=== PATIENT | female | born 1985 | race Caucasian/White ===

== ENCOUNTER 2020-06-18 05:00 | Inpatient (IN) | payer OTHER ==
[2020-06-18] MEDS ORDERED: Methylergonovine 0.2 MG/1 ML Amp IM PRN (05:29)
[2020-06-18] MEDS ORDERED: Tranexamic Acid 1,000 MG in Sodium Chloride 0.9% 100 ML IV PRN (05:29)
[2020-06-18] MEDS ORDERED: Misoprostol 200 MCG Tab PO PRN (05:29)
[2020-06-18] MEDS ORDERED: Water For Irrigation,Sterile 1,000 ML Container IRR PRN (05:29)
[2020-06-18] MEDS ORDERED: Sodium Chloride 0.9% 10 ML Syringe FLUSH PRN (05:29)
[2020-06-18] MEDS ORDERED: Carboprost Tromethamine 250 MCG/1 ML Amp IM PRN (05:29)
[2020-06-18] MEDS ORDERED: Ampicillin 2 GM in Sodium Chloride 0.9% 100 ML IV ONE (05:29)
[2020-06-18] MEDS ORDERED: Sodium Chloride 0.9% 10 ML SDV IV PRN (05:29)
[2020-06-18] MEDS ORDERED: Nalbuphine 10 MG/1 ML Vial IVPUSH PRN (05:29)
[2020-06-18] MEDS ORDERED: Lidocaine 1% 50 ML MDV INJECT PRN (05:29)
[2020-06-18] MEDS ORDERED: Ondansetron 4 MG/2 ML SDV IVPUSH PRN (05:29)
[2020-06-18] MEDS ORDERED: Sodium Chloride 0.9% 2.5 ML Syringe FLUSH PRN (05:29)
[2020-06-18] MEDS ORDERED: Butorphanol 1 MG/ML SDV IVPUSH PRN (05:29)
[2020-06-18] MEDS ORDERED: Oxytocin/0.9 % Sodium Chloride 30 UNIT/500 ML BAG IV SCH ×2 (05:30→06:30)
[2020-06-18] MEDS: Lactated Ringers 1,000 ML IV SCH ×4 (05:35→12:54)
[2020-06-18] MEDS ORDERED: Terbutaline 1 MG/ML SDV SUBCUT PRN (06:19)
[2020-06-18] MEDS ORDERED: Ampicillin 1 GM in Sodium Chloride 0.9% 50 ML IV SCH (06:45)
[2020-06-18] MEDS: Ampicillin 1 GM in Sodium Chloride 0.9% 50 ML IV SCH ×2 (10:10→14:25)
[2020-06-18] MEDS ORDERED: Ropivacaine HCl/PF 100 ML ONE (11:19)
[2020-06-18] MEDS ORDERED: fentaNYL 100 MCG/2 ML SDV ONE (11:19)
[2020-06-18] MEDS ORDERED: Lidocaine 1% 50 ML MDV ONE (11:50)
--- NOTE | 2020-06-18 12:25 | PCM.PREANE ---
Preanesthetic Assessment - Procedure Proposed Procedure: Continuous Labor Epidural - Anesthesia/Transfusion/Family Hx Anesthesia History: Prior Anesthesia Without Reaction Transfusion History: No Prior Transfusion(s) - Review of Systems General: No Symptoms Pulmonary: No Symptoms Cardiovascular: No Symptoms Gastrointestinal: No Symptoms Neurological: No Symptoms Other: Reports: None - Physical Assessment Height: 5 ft 4 in Weight: 98.883 kg ASA Class: 2 Mental Status: Alert & Oriented x3 Airway Class: Mallampati = 2 Dentition: Reports: Normal Dentition Thyro-Mental Finger Breadths: 3 Mouth Opening Finger Breadths: 3 ROM/Head Extension: Full Lungs: Clear to Auscultation, Normal Respiratory Effort Cardiovascular: Regular Rate, Regular Rhythm - Lab Values: Laboratory Last Values WBC 10.94 K/uL (4.0-11.0) 06/18/20 05:20 RBC 4.41 M/uL (4.30-5.90) 06/18/20 05:20 Hgb 12.7 g/dL (12.0-16.0) 06/18/20 05:20 Hct 39.5 % (36.0-46.0) 06/18/20 05:20 MCV 89.6 fL (80.0-98.0) 06/18/20 05:20 MCH 28.8 pg (27.0-32.0) 06/18/20 05:20 MCHC 32.2 g/dL (31.0-37.0) 06/18/20 05:20 RDW Std Deviation 43.3 fl (28.0-62.0) 06/18/20 05:20 RDW Coeff of Home 13 % (11.0-15.0) 06/18/20 05:20 Plt Count 289 K/uL (150-400) 06/18/20 05:20 MPV 10.10 fL (7.40-12.00) 06/18/20 05:20 Nucleated RBC % 0.0 /100WBC 06/18/20 05:20 Nucleated RBCs # 0 K/uL 06/18/20 05:20 Blood Type O POSITIVE 06/18/20 05:20 Antibody Screen NEGATIVE 06/18/20 05:20 - Allergies Allergies/Adverse Reactions: Allergies Allergy/AdvReac Type Severity Reaction Status Date / Time influenza virus vaccine ts Allergy Swelling Verified 06/18/20 05:33 [id number] (36 mos,up) [From Fluarix] - Anesthesia Plan Free Text/Narrative:: Continuous Labor Epidural Pre-Op Medication Ordered: None - Acknowledgements Anesthesia Type Planned: Epidural Pt an Appropriate Candidate for the Planned Anesthesia: Yes Alternatives and Risks of Anesthesia Discussed w Pt/Guardian: Yes Pt/Guardian Understands and Agrees with Anesthesia Plan: Yes PreAnesthesia Questionnaire HEENT History: Reports: None Cardiovascular History: Reports: None Respiratory History: Reports: None Gastrointestinal History: Reports: None Genitourinary History: Reports: None [employer]IOLOGICAL HEALTH SPECIALIST History: Reports: : 3 Para: 0 LMP (Approximate): Musculoskeletal History: Reports: None Neurological History: Reports: None Psychiatric History: Reports: None Endocrine/Metabolic History: Reports: None Hematologic History: Reports: None Immunologic History: Reports: None Oncologic (Cancer) History: Reports: None Dermatologic History: Reports: None - Infectious Disease History Infectious Disease History: Reports: None - Past Surgical History HEENT Surgical History: Reports: Tonsillectomy - SUBSTANCE USE Tobacco Use Status *Q: Never Tobacco User Second Hand Smoke Exposure: No Recreational Drug Use History: No - CURRENT (IN HOUSE) MEDS Current Meds: Current Medications Butorphanol Tartrate (Stadol) 1 mg IVPUSH Q1H PRN PRN Reason: Pain Last Admin: 06/18/20 12:20 Dose: 1 mg Documented by: Carboprost Tromethamine (Hemabate Ds) 250 mcg IM ASDIRECTED PRN PRN Reason: Post Hemorrhage Oxytocin/Sodium Chloride (Oxytocin 30 Unit/500 Ml-Ns) 30 unit in 500 mls @ 500 mls/hr IV TITRATE [facility] Tranexamic Acid 1,000 mg/ (Sodium Chloride) 110 mls @ 660 mls/hr IV ONETIME PRN PRN Reason: Bleeding Lactated Ringer's (Ringers, Lactated) 1,000 mls @ 150 mls/hr IV ASDIRECTED [place] Last Admin: 06/18/20 05:35 Dose: 150 mls/hr Documented by: Oxytocin/Sodium Chloride (Oxytocin 30 Unit/500 Ml-Ns) 30 unit in 500 mls @ 2 mls/hr IV TITRATE [facility]; Protocol Last Titration: 06/18/20 11:20 Dose: 2 munits/min, 2 mls/hr Documented by: Ampicillin Sodium 1 gm/ Sodium (Chloride) 50 mls @ 100 mls/hr IV Q4H [facility] Last Admin: 06/18/20 10:10 Dose: 100 mls/hr Documented by: Lidocaine HCl (Xylocaine 1%) 50 ml INJECT ONETIME PRN PRN Reason: Laceration repair Methylergonovine Maleate (Methergine) 0.2 mg IM ASDIRECTED PRN PRN Reason: Post Hemorrhage Misoprostol (Cytotec) 200 mcg PO ONETIME PRN PRN Reason: Post Hemorrhage Nalbuphine HCl (Nubain) 10 mg IVPUSH Q1H PRN PRN Reason: Pain (severe 7-10) Ondansetron HCl (Zofran) 4 mg IVPUSH Q4H PRN PRN Reason: Nausea/Vomiting Sodium Chloride (Saline Flush) 10 ml FLUSH ASDIRECTED PRN PRN Reason: Keep Vein Open Sodium Chloride (Saline Flush) 2.5 ml FLUSH ASDIRECTED PRN PRN Reason: Keep Vein Open Sodium Chloride (Normal Saline) 10 ml IV ASDIRECTED PRN PRN Reason: IV Use Sterile Water (Sterile Water For Irrigation) 1,000 ml IRR ASDIRECTED PRN PRN Reason: delivery Terbutaline Sulfate (Brethine) 0.25 mg SUBCUT ASDIRECTED PRN PRN Reason: Tacysystole Discontinued Medications Fentanyl (Sublimaze) Confirm Administered Dose 200 mcg .ROUTE .STK-MED ONE Stop: 06/18/20 11:20 Ampicillin Sodium 2 gm/ Sodium (Chloride) 100 mls @ 200 mls/hr IV ONETIME ONE Stop: 06/18/20 05:58 Last Admin: 06/18/20 05:49 Dose: 200 mls/hr Documented by: Ropivacaine (Naropin 0.2%) Confirm Administered Dose 100 mls @ as directed .ROUTE .STK-MED ONE Stop: 06/18/20 11:20 Lidocaine HCl (Xylocaine 1%) Confirm Administered Dose 50 ml .ROUTE .STK-MED ONE Stop: 06/18/20 11:51
[2020-06-18] MEDS ORDERED: Docusate Sodium 100 MG Cap PO PRN (18:36)
[2020-06-18] MEDS ORDERED: Lanolin 100% Cream 7 GM Tube TOP PRN (18:36)
[2020-06-18] MEDS ORDERED: Acetaminophen 500 MG Tab PO PRN ×2 (18:36)
[2020-06-18] MEDS ORDERED: Witch Hazel Medicated Pads 40/Jar TOP PRN (18:36)
[2020-06-18] MEDS ORDERED: Bisacodyl 10 MG Supp RECTAL PRN (18:36)
[2020-06-18] MEDS ORDERED: Ibuprofen 400 MG Tab PO PRN (18:36)
[2020-06-18] MEDS ORDERED: Benzocaine/Menthol 20%-0.5% Spray 78 GM Cannister TOP PRN (18:36)
[2020-06-18] MEDS ORDERED: oxyCODONE 5 MG Tab PO PRN (18:36)
--- NOTE | 2020-06-18 18:43 | PCM.OPNOTE ---
- General Post-Op/Procedure Note Date of Surgery/Procedure: 06/18/20 Operative Procedure(s): /1st MLL repaired Findings: Viable male APGARs 8, 9 weight 3130gm Spontaneous delivery intact placenta and 3V cord Pre Op Diagnosis: 40 week IUP. AMA. Elective IOL Post-Op Diagnosis: Same Anesthesia Technique: Epidural Primary Surgeon: Toña Ely EBL in mLs: 300 Complications: none known Condition: Good Free Text/Narrative:: Dictation [id number]
--- NOTE | 2020-06-18 20:44 | OR ---
SURGEON: Toña Ely M.D. DATE OF PROCEDURE: 06/18/2020 PREOPERATIVE DIAGNOSES: 1. 40-week intrauterine . 2. Advanced maternal age. 3. Elective induction of labor. POSTOPERATIVE DIAGNOSES: 1. 40-week intrauterine . 2. Advanced maternal age. 3. Elective induction of labor. PROCEDURE: Spontaneous vaginal delivery, first-degree midline laceration repaired. PRIMARY SURGEON: Toña Ely M.D. ANESTHESIA: Epidural. ESTIMATED BLOOD LOSS: 300 mL. COMPLICATIONS: None. FINDINGS: Viable male. scores 8 at one minute and 9 at five minutes. Weight of 3130 g. Spontaneous delivery, intact placenta, 3-vessel cord. DISPOSITION: to nursery. Mom in LDRP. PROCEDURE DETAILS: Alma is a 35-year-old, G1, P0, at 40 weeks' gestational age, who was admitted on the morning of 06/18/2020 for scheduled induction of labor due to gestation and advanced maternal age. Upon admission, the patient was found to be 2 to 3 cm dilated, 70% effaced, -2 station. heart tones were category 1. She is group B beta strep positive, so ampicillin prophylaxis was initiated after IV had been started and labs drawn. The patient is COVID negative. The patient responded nicely shortly before 10 a.m. after receiving her second dose of antibiotic. She was found to be 3 cm, 70% effaced, -2 station. Amniotomy was performed and clear fluid was returned. The patient became increasingly uncomfortable and underwent regional anesthesia. This was fairly difficult for placing her epidural. It took well over an hour for her to have placement of the epidural, but she did ultimately have it placed and became quite comfortable. Shortly thereafter, the patient was found to be 9 cm, 100% effaced, -1 station; and over the next couple of hours progressed to complete, 100% effaced, and +2 station. Around 5 p.m., the patient began pushing efforts, pushed nicely. Approximately at 6 p.m., she was found to be +3 station. She was placed in modified dorsal lithotomy position, prepped and draped in the usual aseptic manner. Continued with pushing efforts, was able to deliver infant's head atraumatically, followed by anterior shoulder, posterior shoulder, and remainder of the body without difficulty. The 's oropharynx and nares were bulb suctioned. After a delay, the cord was clamped x2 and cut. Cord arterial, cord venous, and cord blood samples were obtained. Light pressure was applied while the placenta was delivered spontaneously intact. Vigorous fundal uterine massage was applied while 30 units of Pitocin was delivered in 500 mL of IV fluid. Upon inspection of cervix, vaginal sidewalls, and perineum, there was found to be a first-degree midline laceration, which was repaired using 3-0 Vicryl in the usual fashion. Hemostasis appeared evident. Sponge count and instrument count were correct. The patient will remain in LDRP. to nursery. DONNA / KIRSTIN /[id number]
[2020-06-18] MEDS: Ibuprofen 800 MG Tab PO PRN (21:28)
[2020-06-19] MEDS: Ibuprofen 800 MG Tab PO PRN ×2 (05:52→14:12)
--- NOTE | 2020-06-19 08:56 | PCM.PNPP ---
- General Info Date of Service: 06/19/20 Functional Status: Reports: Pain Controlled, Tolerating Diet, Ambulating, Urinating - Review of Systems General: Reports: Fatigue. Denies: Fever, Weakness Pulmonary: Denies: Shortness of Breath Cardiovascular: Denies: Chest Pain, Palpitations, Lightheadedness Gastrointestinal: Denies: Abdominal Pain, Nausea, Vomiting Genitourinary: Denies: Flank Pain Musculoskeletal: Reports: No Symptoms Skin: Reports: No Symptoms Neurological: Reports: No Symptoms Psychiatric: Reports: No Symptoms - General Info Date of Service: 06/19/20 - Patient Data Vital Signs - Most Recent: Last Vital Signs Temp 36.3 C 06/19/20 04:16 Pulse 61 06/19/20 04:16 Resp 14 06/19/20 04:16 BP 114/74 06/19/20 04:16 Pulse Ox 98 06/19/20 04:16 Weight - Most Recent: 98.883 kg Lab Results - Last 24 Hours: Laboratory Results - last 24 hr 06/18/20 06/19/20 Range/Units 18:16 05:58 Hgb 11.2 L (12.0-16.0) g/dL Hct 35.2 L (36.0-46.0) % Cord ABG pH 7.200 (7.18-7.38) Cord ABG Base Excess -8 (-10--2) Cord VBG pH 7.302 (7.25-7.45) Cord VBG Base Excess -6 (-10--2) Med Orders - Current: Current Medications Acetaminophen (Tylenol Extra Strength) 500 mg PO Q4H PRN PRN Reason: Pain Acetaminophen (Tylenol Extra Strength) 1,000 mg PO Q4H PRN PRN Reason: Pain Last Admin: 06/18/20 21:29 Dose: 1,000 mg Documented by: Benzocaine/Menthol (Dermoplast Pain Relief 20%-0.5% [place]) 78 gm TOP ASDIRECTED PRN PRN Reason: Perineal Comfort Measure Last Admin: 06/18/20 20:11 Dose: 1 can Documented by: Bisacodyl (Dulcolax) 10 mg RECTAL ONETIME PRN PRN Reason: Constipation Carboprost Tromethamine (Hemabate Ds) 250 mcg IM ASDIRECTED PRN PRN Reason: Post Hemorrhage Docusate Sodium (Colace) 100 mg PO BID PRN PRN Reason: Constipation Last Admin: 06/18/20 20:11 Dose: 100 mg Documented by: Emollient Ointment (Lansinoh Hpa) 0 gm TOP ASDIRECTED PRN PRN Reason: Sore Nipples Oxytocin/Sodium Chloride (Oxytocin 30 Unit/500 Ml-Ns) 30 unit in 500 mls @ 500 mls/hr IV TITRATE [facility] Tranexamic Acid 1,000 mg/ (Sodium Chloride) 110 mls @ 660 mls/hr IV ONETIME PRN PRN Reason: Bleeding Lactated Ringer's (Ringers, Lactated) 1,000 mls @ 150 mls/hr IV ASDIRECTED [facility] Last Admin: 06/18/20 12:54 Dose: 999 mls/hr Documented by: Ibuprofen (Motrin) 400 mg PO Q4H PRN PRN Reason: Pain Ibuprofen (Motrin) 800 mg PO Q6H PRN PRN Reason: Pain Last Admin: 06/19/20 05:52 Dose: 800 mg Documented by: Methylergonovine Maleate (Methergine) 0.2 mg IM ASDIRECTED PRN PRN Reason: Post Hemorrhage Ondansetron HCl (Zofran) 4 mg IVPUSH Q4H PRN PRN Reason: Nausea/Vomiting Oxycodone HCl (Oxycodone) 5 mg PO Q2H PRN PRN Reason: Pain Sodium Chloride (Saline Flush) 10 ml FLUSH ASDIRECTED PRN PRN Reason: Keep Vein Open Sodium Chloride (Saline Flush) 2.5 ml FLUSH ASDIRECTED PRN PRN Reason: Keep Vein Open Sterile Water (Sterile Water For Irrigation) 1,000 ml IRR ASDIRECTED PRN PRN Reason: delivery Witch Aicha (Tucks) 1 pad TOP ASDIRECTED PRN PRN Reason: comfort care Last Admin: 06/18/20 20:10 Dose: 1 container Documented by: Discontinued Medications Butorphanol Tartrate (Stadol) 1 mg IVPUSH Q1H PRN PRN Reason: Pain Last Admin: 06/18/20 12:20 Dose: 1 mg Documented by: Fentanyl (Sublimaze) Confirm Administered Dose 200 mcg .ROUTE .STK-MED ONE Stop: 06/18/20 11:20 Ampicillin Sodium 2 gm/ Sodium (Chloride) 100 mls @ 200 mls/hr IV ONETIME ONE Stop: 06/18/20 05:58 Last Admin: 06/18/20 05:49 Dose: 200 mls/hr Documented by: Oxytocin/Sodium Chloride (Oxytocin 30 Unit/500 Ml-Ns) 30 unit in 500 mls @ 2 mls/hr IV TITRATE [facility]; Protocol Last Titration: 06/18/20 12:49 Dose: 4 munits/min, 4 mls/hr Documented by: Ampicillin Sodium 1 gm/ Sodium (Chloride) 50 mls @ 100 mls/hr IV Q4H [facility] Last Admin: 06/18/20 14:25 Dose: 100 mls/hr Documented by: Ropivacaine (Naropin 0.2%) Confirm Administered Dose 100 mls @ as directed .ROUTE .[employer]-MED ONE Stop: 06/18/20 11:20 Lidocaine HCl (Xylocaine 1%) 50 ml INJECT ONETIME PRN PRN Reason: Laceration repair Lidocaine HCl (Xylocaine 1%) Confirm Administered Dose 50 ml .ROUTE .STK-MED ONE Stop: 06/18/20 11:51 Misoprostol (Cytotec) 200 mcg PO ONETIME PRN PRN Reason: Post Hemorrhage Nalbuphine HCl (Nubain) 10 mg IVPUSH Q1H PRN PRN Reason: Pain (severe 7-10) Sodium Chloride (Normal Saline) 10 ml IV ASDIRECTED PRN PRN Reason: IV Use Terbutaline Sulfate (Brethine) 0.25 mg SUBCUT ASDIRECTED PRN PRN Reason: Tacysystole - Infant Interaction Support Person: - Recovery Exam Fundal Tone: Firm Fundal Level: 2 Fingerbreadths Below Umbilicus Fundal Placement: Midline Lochia Amount: Small Lochia Color: Rubra/Red Perineum Description: Intact, Minimal Bruising/Swelling, Other (see below) Other Perinuem Description: 1st degree laceration Episiotomy/Laceration: Approximated Bladder Status: Voiding Urinary Elimination: Voided - Exam General: Alert, Oriented Lungs: Normal Respiratory Effort Cardiovascular: Regular Rate, Regular Rhythm GI/Abdominal Exam: Normal Bowel Sounds, Soft Extremities: Pedal Edema (trace). No: Giancarlo's Sign Skin: Warm, Dry, Intact Neurological: No New Focal Deficit Psy/Mental Status: Alert, Normal Affect, Normal Mood - Problem List & Annotations (1) Vaginal delivery SNOMED Code(s): 059187454 Code(s): O80 - ENCOUNTER FOR FULL-TERM UNCOMPLICATED DELIVERY Status: Acute Current Visit: Yes - Problem List Review Problem List Initiated/Reviewed/Updated: Yes - My Orders Last 24 Hours: My Active Orders 06/18/20 Dinner Regular Diet [DIET] 06/18/20 18:36 Patient Status [ADT] Routine May Shower [RC] ASDIRECTED Notify Provider Vital Signs [RC] ASDIRECTED Up ad Leidy [RC] ASDIRECTED Vital Signs [RC] PER UNIT ROUTINE Acetaminophen [Tylenol Extra Strength] 1,000 mg PO Q4H PRN Acetaminophen [Tylenol Extra Strength] 500 mg PO Q4H PRN Benzocaine/Menthol [Dermoplast Pain Relief 20%-0.5% [place]] 78 gm TOP ASDIRECTED PRN Docusate Sodium [Colace] 100 mg PO BID PRN Ibuprofen [Motrin] 400 mg PO Q4H PRN Ibuprofen [Motrin] 800 mg PO Q6H PRN Lanolin [Lansinoh HPA] See Dose Instructions TOP ASDIRECTED PRN bisacodyL [Dulcolax] 10 mg RECTAL ONETIME PRN oxyCODONE 5 mg PO Q2H PRN witch Aicha [Tucks] 1 pad TOP ASDIRECTED PRN Assess Lochia [WOMSER] Per Unit Routine Assess Uterine Involution [WOMSER] Per Unit Routine Ice Therapy [OM.PC] Per Unit Routine Perineal Care [OM.PC] Per Unit Routine Peripheral IV Discontinue [OM.PC] Routine Sitz Bath [OM.PC] Per Unit Routine 06/18/20 18:37 Cooling Warming Measures [RC] ASDIRECTED - Assessment Assessment:: PPD 1 status post /1st MLL repaired - Plan Plan:: Doing well overall. VS are stable. Continue PP cares
--- NOTE | 2020-06-19 13:47 | PCM48HPAN ---
Post Anesthesia Note - EVALUATION WITHIN 48HRS OF ANESTHETIC Vital Signs in Normal Range: Yes Patient Participated in Evaluation: Yes Respiratory Function Stable: Yes Airway Patent: Yes Cardiovascular Function Stable: Yes Hydration Status Stable: Yes Pain Control Satisfactory: Yes Nausea and Vomiting Control Satisfactory: Yes Mental Status Recovered: Yes Vital Signs: Last Vital Signs Temp 36.6 C 06/19/20 08:35 Pulse 65 06/19/20 08:35 Resp 18 06/19/20 08:35 BP 136/88 06/19/20 08:35 Pulse Ox 99 06/19/20 08:35 - COMMENTS/OBSERVATIONS Free Text/Narrative:: Patient sitting in bed. She is doing well with only some back discomfort and bruising despite epidural placement being very difficult (See anesthesia record for details). She does not have any complaints or concerns at this time and is happy with the pain control obtained from the epidural infusion during labor and delivery. No further anesthesia concerns noted.
--- NOTE | 2020-06-20 06:24 | PCM.PNPP ---
- General Info Date of Service: 06/20/20 Functional Status: Reports: Pain Controlled, Tolerating Diet, Ambulating, Urinating - Review of Systems General: Reports: Fatigue. Denies: Fever, Weakness Pulmonary: Denies: Shortness of Breath Cardiovascular: Denies: Chest Pain, Palpitations, Lightheadedness Gastrointestinal: Reports: No Symptoms Genitourinary: Reports: No Symptoms Musculoskeletal: Reports: No Symptoms Skin: Reports: No Symptoms Neurological: Reports: No Symptoms Psychiatric: Reports: No Symptoms - General Info Date of Service: 06/20/20 - Patient Data Vital Signs - Most Recent: Last Vital Signs Temp 36.6 C 06/20/20 05:13 Pulse 75 06/20/20 05:13 Resp 16 06/20/20 05:13 BP 141/74 H 06/20/20 05:13 Pulse Ox 98 06/20/20 05:13 Weight - Most Recent: 98.883 kg Lab Results - Last 24 Hours: Laboratory Results - last 24 hr 06/19/20 Range/Units 05:58 Hgb 11.2 L (12.0-16.0) g/dL Hct 35.2 L (36.0-46.0) % Med Orders - Current: Current Medications Acetaminophen (Tylenol Extra Strength) 500 mg PO Q4H PRN PRN Reason: Pain Acetaminophen (Tylenol Extra Strength) 1,000 mg PO Q4H PRN PRN Reason: Pain Last Admin: 06/18/20 21:29 Dose: 1,000 mg Documented by: Benzocaine/Menthol (Dermoplast Pain Relief 20%-0.5% [place]) 78 gm TOP ASDIRECTED PRN PRN Reason: Perineal Comfort Measure Last Admin: 06/18/20 20:11 Dose: 1 can Documented by: Bisacodyl (Dulcolax) 10 mg RECTAL ONETIME PRN PRN Reason: Constipation Carboprost Tromethamine (Hemabate Ds) 250 mcg IM ASDIRECTED PRN PRN Reason: Post Hemorrhage Docusate Sodium (Colace) 100 mg PO BID PRN PRN Reason: Constipation Last Admin: 06/18/20 20:11 Dose: 100 mg Documented by: Emollient Ointment (Lansinoh Hpa) 0 gm TOP ASDIRECTED PRN PRN Reason: Sore Nipples Last Admin: 06/19/20 14:11 Dose: 1 tube Documented by: Oxytocin/Sodium Chloride (Oxytocin 30 Unit/500 Ml-Ns) 30 unit in 500 mls @ 500 mls/hr IV TITRATE [facility] Tranexamic Acid 1,000 mg/ (Sodium Chloride) 110 mls @ 660 mls/hr IV ONETIME PRN PRN Reason: Bleeding Lactated Ringer's (Ringers, Lactated) 1,000 mls @ 150 mls/hr IV ASDIRECTED [place] Last Admin: 06/18/20 12:54 Dose: 999 mls/hr Documented by: Ibuprofen (Motrin) 400 mg PO Q4H PRN PRN Reason: Pain Ibuprofen (Motrin) 800 mg PO Q6H PRN PRN Reason: Pain Last Admin: 06/19/20 14:12 Dose: 800 mg Documented by: Methylergonovine Maleate (Methergine) 0.2 mg IM ASDIRECTED PRN PRN Reason: Post Hemorrhage Ondansetron HCl (Zofran) 4 mg IVPUSH Q4H PRN PRN Reason: Nausea/Vomiting Oxycodone HCl (Oxycodone) 5 mg PO Q2H PRN PRN Reason: Pain Sodium Chloride (Saline Flush) 10 ml FLUSH ASDIRECTED PRN PRN Reason: Keep Vein Open Sodium Chloride (Saline Flush) 2.5 ml FLUSH ASDIRECTED PRN PRN Reason: Keep Vein Open Sterile Water (Sterile Water For Irrigation) 1,000 ml IRR ASDIRECTED PRN PRN Reason: delivery Witch Aicha (Tucks) 1 pad TOP ASDIRECTED PRN PRN Reason: comfort care Last Admin: 06/18/20 20:10 Dose: 1 container Documented by: Discontinued Medications Butorphanol Tartrate (Stadol) 1 mg IVPUSH Q1H PRN PRN Reason: Pain Last Admin: 06/18/20 12:20 Dose: 1 mg Documented by: Fentanyl (Sublimaze) Confirm Administered Dose 200 mcg .ROUTE .STK-MED ONE Stop: 06/18/20 11:20 Last Admin: 06/19/20 20:49 Dose: Not Given Documented by: Ampicillin Sodium 2 gm/ Sodium (Chloride) 100 mls @ 200 mls/hr IV ONETIME ONE Stop: 06/18/20 05:58 Last Admin: 06/18/20 05:49 Dose: 200 mls/hr Documented by: Oxytocin/Sodium Chloride (Oxytocin 30 Unit/500 Ml-Ns) 30 unit in 500 mls @ 2 mls/hr IV TITRATE [facility]; Protocol Last Titration: 06/18/20 12:49 Dose: 4 munits/min, 4 mls/hr Documented by: Ampicillin Sodium 1 gm/ Sodium (Chloride) 50 mls @ 100 mls/hr IV Q4H [facility] Last Admin: 06/18/20 14:25 Dose: 100 mls/hr Documented by: Ropivacaine (Naropin 0.2%) Confirm Administered Dose 100 mls @ as directed .ROUTE .[employer] ONE Stop: 06/18/20 11:20 Last Admin: 06/19/20 20:49 Dose: Not Given Documented by: Lidocaine HCl (Xylocaine 1%) 50 ml INJECT ONETIME PRN PRN Reason: Laceration repair Lidocaine HCl (Xylocaine 1%) Confirm Administered Dose 50 ml .ROUTE .[employer] ONE Stop: 06/18/20 11:51 Last Admin: 06/19/20 20:49 Dose: Not Given Documented by: Misoprostol (Cytotec) 200 mcg PO ONETIME PRN PRN Reason: Post Hemorrhage Nalbuphine HCl (Nubain) 10 mg IVPUSH Q1H PRN PRN Reason: Pain (severe 7-10) Sodium Chloride (Normal Saline) 10 ml IV ASDIRECTED PRN PRN Reason: IV Use Terbutaline Sulfate (Brethine) 0.25 mg SUBCUT ASDIRECTED PRN PRN Reason: Tacysystole - Interaction Support Person: - Recovery Exam Fundal Tone: Firm Fundal Level: 1 Fingerbreadths Below Umbilicus Fundal Placement: Midline Lochia Amount: Scant Lochia Color: Rubra/Red Perineum Description: Other (see below) Other Perinuem Description: 1st degree laceration with repair. Episiotomy/Laceration: Approximated Bladder Status: Voiding Urinary Elimination: Voided - Exam General: Alert, Oriented Lungs: Normal Respiratory Effort Cardiovascular: Regular Rate, Regular Rhythm GI/Abdominal Exam: Normal Bowel Sounds, Soft Extremities: Pedal Edema (1+). No: Giancarlo's Sign Skin: Warm, Dry, Intact, Ecchymosis (along back where epidural attempts were placed) Neurological: No New Focal Deficit Psy/Mental Status: Alert, Normal Affect, Normal Mood - Problem List & Annotations (1) Vaginal delivery SNOMED Code(s): 465935749 Code(s): O80 - ENCOUNTER FOR FULL-TERM UNCOMPLICATED DELIVERY Status: Acute Current Visit: Yes - Problem List Review Problem List Initiated/Reviewed/Updated: Yes - Assessment Assessment:: PPD 2 status post /1st MLL repaired GBBS+ received prophylaxis during labor Elevate BPs - Plan Plan:: Patient is working with -- was placed on antibiotics last night for prohphylaxis until cultures return. Heart rate was also being monitored. He is doing very well now. However, this has created quite a lot of stress for [place] and her BPs have elevated through the night. She was quite upset when I saw her this morning. Have reassured her. She just had a very good feed with him and he is in the room now. This is helping to alleviate her concerns. Continue PP cares, will monitor BPs. Patient will not be able to be discharged until Sunday am.
--- NOTE | 2020-06-21 12:21 | PCM.PNPP ---
- General Info Date of Service: 06/21/20 Functional Status: Reports: Pain Controlled, Tolerating Diet, Ambulating, Urinating - Review of Systems General: Reports: Fatigue. Denies: Fever, Weakness Pulmonary: Denies: Shortness of Breath Cardiovascular: Denies: Chest Pain, Palpitations, Lightheadedness Gastrointestinal: Denies: Abdominal Pain, Nausea, Vomiting Genitourinary: Reports: No Symptoms Musculoskeletal: Reports: No Symptoms Skin: Reports: No Symptoms Neurological: Reports: No Symptoms Psychiatric: Reports: No Symptoms - General Info Date of Service: 06/21/20 - Patient Data Vital Signs - Most Recent: Last Vital Signs Temp 36.2 C 06/21/20 07:41 Pulse 71 06/21/20 07:41 Resp 18 06/21/20 07:41 BP 143/89 H 06/21/20 07:41 Pulse Ox 100 06/21/20 07:41 Weight - Most Recent: 98.883 kg Lab Results - Last 24 Hours: Laboratory Results - last 24 hr 06/18/20 Range/Units 05:20 RPR Non-Reac (Non-Reac) Med Orders - Current: Current Medications Acetaminophen (Tylenol Extra Strength) 500 mg PO Q4H PRN PRN Reason: Pain Acetaminophen (Tylenol Extra Strength) 1,000 mg PO Q4H PRN PRN Reason: Pain Last Admin: 06/18/20 21:29 Dose: 1,000 mg Documented by: Benzocaine/Menthol (Dermoplast Pain Relief 20%-0.5% [place]) 78 gm TOP ASDIRECTED PRN PRN Reason: Perineal Comfort Measure Last Admin: 06/18/20 20:11 Dose: 1 can Documented by: Bisacodyl (Dulcolax) 10 mg RECTAL ONETIME PRN PRN Reason: Constipation Carboprost Tromethamine (Hemabate Ds) 250 mcg IM ASDIRECTED PRN PRN Reason: Post Hemorrhage Docusate Sodium (Colace) 100 mg PO BID PRN PRN Reason: Constipation Last Admin: 06/18/20 20:11 Dose: 100 mg Documented by: Emollient Ointment (Lansinoh Hpa) 0 gm TOP ASDIRECTED PRN PRN Reason: Sore Nipples Last Admin: 06/19/20 14:11 Dose: 1 tube Documented by: Oxytocin/Sodium Chloride (Oxytocin 30 Unit/500 Ml-Ns) 30 unit in 500 mls @ 500 mls/hr IV TITRATE [facility] Tranexamic Acid 1,000 mg/ (Sodium Chloride) 110 mls @ 660 mls/hr IV ONETIME PRN PRN Reason: Bleeding Lactated Ringer's (Ringers, Lactated) 1,000 mls @ 150 mls/hr IV ASDIRECTED DEBORA Last Admin: 06/18/20 12:54 Dose: 999 mls/hr Documented by: Ibuprofen (Motrin) 400 mg PO Q4H PRN PRN Reason: Pain Ibuprofen (Motrin) 800 mg PO Q6H PRN PRN Reason: Pain Last Admin: 06/19/20 14:12 Dose: 800 mg Documented by: Methylergonovine Maleate (Methergine) 0.2 mg IM ASDIRECTED PRN PRN Reason: Post Hemorrhage Ondansetron HCl (Zofran) 4 mg IVPUSH Q4H PRN PRN Reason: Nausea/Vomiting Oxycodone HCl (Oxycodone) 5 mg PO Q2H PRN PRN Reason: Pain Sodium Chloride (Saline Flush) 10 ml FLUSH ASDIRECTED PRN PRN Reason: Keep Vein Open Sodium Chloride (Saline Flush) 2.5 ml FLUSH ASDIRECTED PRN PRN Reason: Keep Vein Open Sterile Water (Sterile Water For Irrigation) 1,000 ml IRR ASDIRECTED PRN PRN Reason: delivery Antoinette Holcomb (Tucks) 1 pad TOP ASDIRECTED PRN PRN Reason: comfort care Last Admin: 06/18/20 20:10 Dose: 1 container Documented by: Discontinued Medications Butorphanol Tartrate (Stadol) 1 mg IVPUSH Q1H PRN PRN Reason: Pain Last Admin: 06/18/20 12:20 Dose: 1 mg Documented by: Fentanyl (Sublimaze) Confirm Administered Dose 200 mcg .ROUTE .STK-MED ONE Stop: 06/18/20 11:20 Last Admin: 06/19/20 20:49 Dose: Not Given Documented by: Ampicillin Sodium 2 gm/ Sodium (Chloride) 100 mls @ 200 mls/hr IV ONETIME ONE Stop: 06/18/20 05:58 Last Admin: 06/18/20 05:49 Dose: 200 mls/hr Documented by: Oxytocin/Sodium Chloride (Oxytocin 30 Unit/500 Ml-Ns) 30 unit in 500 mls @ 2 mls/hr IV TITRATE [place]BORA; Protocol Last Titration: 06/18/20 12:49 Dose: 4 munits/min, 4 mls/hr Documented by: Ampicillin Sodium 1 gm/ Sodium (Chloride) 50 mls @ 100 mls/hr IV Q4H DEBORA Last Admin: 06/18/20 14:25 Dose: 100 mls/hr Documented by: Ropivacaine (Naropin 0.2%) Confirm Administered Dose 100 mls @ as directed .ROUTE .STGaming for Good-MED ONE Stop: 06/18/20 11:20 Last Admin: 06/19/20 20:49 Dose: Not Given Documented by: Lidocaine HCl (Xylocaine 1%) 50 ml INJECT ONETIME PRN PRN Reason: Laceration repair Lidocaine HCl (Xylocaine 1%) Confirm Administered Dose 50 ml .ROUTE [email or web address] ONE Stop: 06/18/20 11:51 Last Admin: 06/19/20 20:49 Dose: Not Given Documented by: Misoprostol (Cytotec) 200 mcg PO ONETIME PRN PRN Reason: Post Hemorrhage Nalbuphine HCl (Nubain) 10 mg IVPUSH Q1H PRN PRN Reason: Pain (severe 7-10) Sodium Chloride (Normal Saline) 10 ml IV ASDIRECTED PRN PRN Reason: IV Use Terbutaline Sulfate (Brethine) 0.25 mg SUBCUT ASDIRECTED PRN PRN Reason: Tacysystole - Infant Interaction Support Person: - Recovery Exam Fundal Tone: Firm Fundal Level: 1 Fingerbreadths Below Umbilicus Fundal Placement: Midline Lochia Amount: Scant Lochia Color: Rubra/Red Perineum Description: Other (see below) Other Perinuem Description: 1st degree repaired laceration Episiotomy/Laceration: Approximated Bladder Status: Voiding Urinary Elimination: Voided - Exam General: Alert, Oriented Lungs: Normal Respiratory Effort Cardiovascular: Regular Rate, Regular Rhythm GI/Abdominal Exam: Normal Bowel Sounds, Soft Extremities: Pedal Edema (trace). No: Giancarlo's Sign Skin: Warm, Dry, Intact Neurological: No New Focal Deficit Psy/Mental Status: Alert, Normal Affect, Normal Mood - Problem List & Annotations (1) Vaginal delivery SNOMED Code(s): 055863252 Code(s): O80 - ENCOUNTER FOR FULL-TERM UNCOMPLICATED DELIVERY Status: Acute Current Visit: Yes - Problem List Review Problem List Initiated/Reviewed/Updated: Yes - Assessment Assessment:: PPD 3 status post /1st MLL repaired GBBS+ received prophylaxis during labor Labile BPs - Plan Plan:: Patient is feeling a bit concerned and frustrated with her son's status. He is on iv antibiotics and pulse will go into the 70s. She is working with . She very much feels her blood pressures when elevated are directly correlated with her stress level and fatigue. Last night when relaxed and were 120/70s. Will continue to monitor as remains asymptomatic. Work with today. Her son's respiratory rate is normal, gaining weight, doing well overall. Discussed plan of care. Patient agrees.
== END 2020-06-21 17:35 | disposition home or self-care (01) | DRG 807 ==
LOC: MW.OBCHECK 05:00 → MW.OB 05:01 → OBSVTOIN 18:16 → MW.OB 23:00
PROVIDERS: ADMIT Obstetrics & Gynecology; ATTEND Obstetrics & Gynecology
PROC: 10E0XZZ Delivery of Products of Conception, External Approach (ICD-10-PCS; principal; 2020-06-18)
PROC: 3E0R3BZ Introduction of Anesthetic Agent into Spinal Canal, Percutaneous Approach (ICD-10-PCS; 2020-06-18)
PROC: 0HQ9XZZ Repair Perineum Skin, External Approach (ICD-10-PCS; 2020-06-18)
DX: O48.0 Post-term pregnancy (principal); Z37.0 Single live birth; O99.824 Streptococcus B carrier state complicating childbirth; Z3A.40 40 weeks gestation of pregnancy; O70.0 First degree perineal laceration during delivery
CPT/HCPCS: 36415; 51702; 59025; 59409; 82803; 85014; 85018; 85027; 86592; 86850; 86900; 86901; A9270-GY; J0290; J0595; J2001; J2590; J2795; J3010; J7050; J7120